=== PATIENT | male | born 1950 | race Caucasian/White ===

== ENCOUNTER 2018-02-15 14:18 | Day surgery (SDC) | payer MEDICARE, OTHER ==
[~2018-02-15] VITALS: Ht 185.4 cm; Wt 78.6 kg
[2018-02-15] VITALS (7 sets, daily range): BP systolic 117–128; BP diastolic 61–72
[2018-02-15] MEDS ORDERED: diphenhydrAMINE 25mg capsule PO PRN (14:35)
[2018-02-15] MEDS ORDERED: LORazepam 0.5 MG tablet PO PRN (14:35)
[2018-02-15] MEDS ORDERED: normal saline 1000ml 1,000 ML IV SCH (14:35)
[2018-02-15] MEDS ORDERED: MULT1TAB74 PO (15:02)
[2018-02-15] MEDS ORDERED: LYR75C PO (15:02)
[2018-02-15] MEDS ORDERED: ASPI81TA52 PO (15:02)
[2018-02-15] MEDS ORDERED: ATOR80TA PO (15:02)
[2018-02-15] MEDS ORDERED: AMIO200T40 PO (15:02)
[2018-02-15] MEDS ORDERED: CARV-50 PO (15:02)
[2018-02-15] MEDS ORDERED: fentaNYL/PF 50MCG/1 ML 2ML syringe ONE (17:15)
[2018-02-15] MEDS ORDERED: iohexol 350MG/ML 100ml bottle IV ONE ×2 (17:16→17:55)
[2018-02-15] MEDS ORDERED: midazolam 2 mg/2 ml injection ONE (17:16)
[2018-02-15] MEDS ORDERED: LIDOcaine 1% (10mg/ml)w/preservative injection 20ml MDV ONE (17:16)
[2018-02-15] MEDS ORDERED: heparin 1,000unit/ml 10ml vial 10 ML ONE (17:51)
[2018-02-15] MEDS ORDERED: ticagrelor 90mg tablet ONE (18:08)
[2018-02-15] MEDS ORDERED: HYDROcodone/acetaminophen 5mg/325mg tablet PO PRN (19:05)
[2018-02-15] MEDS ORDERED: ondansetron/PF 4mg/2ml inj IV PRN (19:05)
[2018-02-15] MEDS ORDERED: HYDROcodone/acetaminophen 10/325mg tab PO PRN (19:05)
[2018-02-15] MEDS ORDERED: OXAZEpam 15mg capsule PO PRN (19:05)
[2018-02-15] MEDS ORDERED: proCHLORperazine 10 MG/2 ml inj IV PRN (19:05)
== END 2018-02-15 20:55 | disposition home or self-care (01) ==
LOC: SSTAY O 14:18
PROVIDERS: ATTEND Internal Medicine Interventional Cardiology
DX: I25.700 Atherosclerosis of coronary artery bypass graft(s), unspecified, with unstable angina pectoris (principal); I10 Essential (primary) hypertension; E78.5 Hyperlipidemia, unspecified; I73.9 Peripheral vascular disease, unspecified; I42.9 Cardiomyopathy, unspecified; Z95.1 Presence of aortocoronary bypass graft; Z96.653 Presence of artificial knee joint, bilateral; Z79.82 Long term (current) use of aspirin; Z79.899 Other long term (current) drug therapy; Z98.890 Other specified postprocedural states
CPT/HCPCS: 93005; 93459; 99152; 99153; A6257; C1725; C1769; C1874; C9600; J1644; J2001; J2250; J3010; J7030; Q0163; Q9967; A4620

== ENCOUNTER 2018-12-28 17:37 | Emergency (ER) | payer MEDICARE, OTHER ==
[~2018-12-28] VITALS: Ht 124.5 cm; Wt 68.0 kg
[~2018-12-28 17:37] MED LIST: AMIO200T61 PO; ASPI81TA52 PO; ATOR80TA PO; CARV-50 PO; LYR75C PO; MULT1TAB74 PO
--- NOTE | 2018-12-28 17:53 | NUR ---
TRAUMA CALLED OFF PER MD Addendum: 12/28/18 at 1754 by FLASH PREVIOUS NOTED CHARTED ON WRONG PATIENT
[2018-12-28 18:47] LABS: BASOPHILS # (AUTO) 0.1 X10'3 (0-0.2); BASOPHILS % (AUTO) 0.5 % (0-1); EOSINOPHILS # (AUTO) 0.1 X10'3 (0-0.9); EOSINOPHILS % (AUTO) 0.6 % (0-6); HEMOGLOBIN 14.9 g/dl (14.0-17.9); LYMPHOCYTES # (AUTO) 1.5 X10'3 (1.1-4.8); MEAN CORPUSCULAR HGB CONC 33.1 g/dL (33.0-36.5); MEAN CORPUSCULAR VOLUME 90.7 FL (78-98); MEAN PLATELET VOLUME 9.3 FL (7.4-10.4); MONOCYTES # (AUTO) 1.6 X10'3 (0-0.9); MONOCYTES % (AUTO) 11.2 % (2-12); NEUTROPHILS # (AUTO) 10.6 X10'3 (1.8-7.7); NEUTROPHILS % (AUTO) 76.7 % (42-75); PLATELET COUNT 193 X10'3 (140-440); RED BLOOD COUNT 4.96 X10'6 (4.70-6.10); RED CELL DISTRIBUTION WIDTH 15.5 % (11.5-14.5); WHITE BLOOD COUNT 13.9 X10'3 (4.5-11.0)
[2018-12-28 18:56] LABS: CLARITY,URINE CLEAR (Clear); COLOR,URINE YELLOW (Yellow); GLUCOSE, URINE NEGATIVE (Neg); KETONES,URINE TRACE mg/dl (Neg); LEUKOCYTE ESTERASE ,URINE NEGATIVE (Neg); NITRITES, URINE NEGATIVE (Neg); OCCULT BLOOD,URINE LARGE (Neg); PH,URINE 5.5 (4.8-8.0); PROTEIN,URINE 30 mg/dl (Neg); UA COLLECTION TYPE URINAL
[2018-12-28 19:02] LABS: ALANINE AMINOTRANSFERASE 75 U/L (12-78); ALBUMIN 3.5 G/DL (3.4-5.0); ALKALINE PHOSPHATASE 161 IU/L (46-116); ANION GAP 10 (8-16); ASPARTATE AMINO TRANSFERASE 46 U/L (10-37); BILIRUBIN,TOTAL 0.5 MG/DL (0.1-1.0); BLOOD UREA NITROGEN 26 MG/DL (7-18); BUN/CREATININE RATIO 18.3 (5.4-32.0); CALCIUM 8.6 MG/DL (8.5-10.1); CHLORIDE 108 MMOL/L (99-107); CREATININE 1.42 MG/DL (0.60-1.10); GLUCOSE 150 MG/DL (70-104); LIPASE 75 U/L (73-393); SODIUM 144 MMOL/L (135-145); TOTAL CARBON DIOXIDE 26.5 MMOL/L (24-32); TOTAL PROTEIN 7.1 G/DL (6.4-8.2); eGFR 50 ML/MIN
[2018-12-28 19:08] LABS: BACTERIA,URINE NONE SEEN /HPF (Neg); MUCUS STRANDS FEW /LPF (Neg); RBC,URINE 20-50 /HPF (0-2); SQUAMOUS EPITHELIAL CELL,UR FEW /LPF (FEW); WBC,URINE 0-4 /HPF (0-4)
[2018-12-28] MEDS ORDERED: ketorolac tromethamine 15mg/ml inj. IV ONE (19:10)
[2018-12-28] MEDS ORDERED: morphine 4 MG/ML inj SYRINge IV ONE (19:10)
[2018-12-28] MEDS ORDERED: ondansetron/PF 4mg/2ml inj IV ONE (19:10)
[2018-12-28] MEDS ORDERED: normal saline 1000ml 1,000 ML IV ONE (19:15)
[2018-12-28] MEDS ORDERED: ONDA8TAB6 PO (20:40)
[2018-12-28] MEDS ORDERED: HYDR-3965 PO (20:40)
[2018-12-28 21:04] VITALS: BP 113/93
== END 2018-12-28 21:49 | disposition home or self-care (01) ==
LOC: ER 17:37
DX: N20.9 Urinary calculus, unspecified (principal); R10.32 Left lower quadrant pain; I10 Essential (primary) hypertension; I25.2 Old myocardial infarction; E78.00 Pure hypercholesterolemia, unspecified; Z98.890 Other specified postprocedural states; Z87.891 Personal history of nicotine dependence; Z79.899 Other long term (current) drug therapy; Z79.82 Long term (current) use of aspirin
CPT/HCPCS: 36415; 74176; 80053; 81001; 83690; 85025; 85610; 93005; 96374; 96375; 99284; J1885; J2270; J2405; J7030